=== PATIENT | male | born 1945 | race Caucasian/White ===

== ENCOUNTER 2017-12-14 16:32 | Observation (INO) ==
[2017-12-14 17:14] LABS: Baso # (Auto) 0.1 th/mm3 (0.0-0.2); Baso % (Auto) 1.3 % (0.0-2.0); Eos # (Auto) 0.3 th/mm3 (0.0-0.4); Eos % (Auto) 3.2 % (0.0-4.0); Hematocrit 37.7 % (39.0-51.0); Lymph # (Auto) 1.8 th/mm3 (1.0-4.8); Lymph % (Auto) 17.4 % (9.0-44.0); Mean Corpuscular HGB Conc 34.5 % (32.0-36.0); Mean Platelet Volume 8.6 fL (7.0-11.0); Mono # (Auto) 0.3 th/mm3 (0.0-0.9); Mono % (Auto) 2.7 % (0.0-8.0); Neut # (Auto) 7.9 th/mm3 (1.8-7.7); Neut % (Auto) 75.4 % (16.0-70.0); Platelet Count 218 th/mm3 (150-450); Red Blood Count 4.18 mil/mm3 (4.50-5.90); Red Cell Distribution Width 13.4 % (11.6-17.2); White Blood Count 10.4 th/mm3 (4.0-11.0)
--- NOTE | 2017-12-14 17:20 | XR ---
EXAM DATE: 12/14/2017 5:18 PM EDT AGE/SEX: 72 years / Male INDICATIONS: Chest pain. CLINICAL DATA: This is the patient's initial encounter. Patient reports that signs and symptoms have been present for 1 day and indicates a pain score of 7/10. MEDICAL/SURGICAL HISTORY: None. None. COMPARISON: POI, XR CHEST PA AND LAT, 03/09/2016. . FINDINGS: A single AP view of the chest demonstrates the lungs to be symmetrically aerated without evidence of mass, infiltrate or effusion. The cardiomediastinal contours are unremarkable. Osseous structures a re intact. CONCLUSION: Negative examination. Electronically signed by: Carlos Pyle MD 12/14/2017 5:19 PM EDT
[2017-12-14 17:23] LABS: Chloride 107 meq/L (98-107); Potassium 3.8 meq/L (3.5-5.1); Sodium 138 meq/L (136-145)
[2017-12-14 17:26] LABS: Albumin 3.5 g/dL (3.4-5.0); Anion Gap 9 meq/L (5-15); Calcium 8.4 mg/dL (8.5-10.1); Glucose,Random 101 mg/dL (74-106)
--- NOTE | 2017-12-14 17:26 | ED ---
HPI General Chief Complaint: Chest Pain Stated Complaint: C/P Time Seen by Provider: 12/14/17 16:56 Source: patient Mode of arrival: ambulatory Limitations: no limitations History of Present Illness MD complaint: Reports chest pain STEMI Alert: No Duration: intermittent Onset: during rest Pain location: Reports substernal Severity scale (1-10): 6 Quality: Reports tightness Pain radiation: Reports RUE and LUE Relieving factors: nothing Exacerbating factors: nothing Associated symptoms: Reports other (Lightheadedness) Treatments prior to arrival chest pain: Reports none Related Data Home Medications Medication Instructions Recorded Confirmed Unable to Obtain Home Meds 12/14/17 12/14/17 Allergies Allergy/AdvReac Type Severity Reaction Status Date / Time No Known Allergies Allergy Verified 12/14/17 16:39 Review of Systems ROS: all other systems reviewed are negative [facility] Social History Social History Substance History: No History of Abuse Smoking Status: Former smoker Tobacco Type: Cigarettes How Often Do You Have a Drink Containing Alcohol: Monthly or less Recent Travel in [facility] within the Last 8 Weeks: No Recent Out of Country Travel within the Last 8 Weeks: No Exam Const General: cooperative, healthy appearing and comfortable Orientation: alert, awake and oriented x3 HENMT Head: normal to inspection, normocephalic and atraumatic Eyes General: appearance normal, both eyes and all related structures Conjunctivae: conjunctivae normal Sclera: sclerae normal EOM: EOM intact bilaterally Neck Neck: normal visual inspection and full ROM Chest Chest: normal inspection of the chest Resp Effort & Inspection: normal respiratory effort and able to speak in complete sentences Auscultation: clear to auscultation bilaterally Cardio Rate: regular rate Rhythm: regular rhythm Heart Sounds: S1 normal and S2 normal GI Inspection: normal to inspection Palpation: soft Rectal Exam: visual inspection normal and normal sphincter tone Back/Spine/Pelvis Cervical Spine: cervical ROM normal Thoracic/Lumbar Spine: thoraco-lumbar ROM normal Skin General: no rashes or lesions noted, turgor normal and dry skin Neuro General: alert, awake, oriented x3, moves all extremities and CN's II-XI intact bilaterally Extrem General: normal to inspection, full ROM and no pedal edema Psych Appearance: grossly normal Mental Status: mental status grossly normal Speech and Movement: speech and movement normal Mood: congruent mood Affect: normal affect Attitude: cooperative Thought Process: normal Thought Content: normal Judgment: judgment good Procedures Hemaprompt Stool Procedural Steps Taken: controls appropriately positive and negative Hemaprompt Stool Result: negative Course Consultations Consultation #1: Dr. Mendez will do the admitting orders. Time: 18:19 Consultation #2: Dr. Marino, long term acute care registered nurse, has no further recommendations. He asked that the patient be made n.p.o. after midnight. Time: 18:35 Initial Documented Vital Signs Temperature 98.4 F 12/14/17 16:39 Pulse Rate 82 12/14/17 16:39 Respiratory Rate 16 12/14/17 16:39 Blood Pressure 117/67 12/14/17 16:39 Pulse Oximetry 96 12/14/17 16:39 Last Documented Vital Signs Temperature 98.4 F 12/14/17 16:39 Pulse Rate 67 12/14/17 18:10 Respiratory Rate 16 12/14/17 18:10 Blood Pressure 140/105 H 12/14/17 18:10 Pulse Oximetry 96 12/14/17 18:10 Critical Care Time Critical Care Time: Yes Total Critical Care Time: 45 Attestation: Time to perform other separately billable procedures was not included in the critical care time. My time did not include minutes spent treating any other patients simultaneously or on activities that did not directly contribute to the patient's treatment. The services I provided to this patient were to treat and/or prevent clinically significant deterioration due to CP, NSTEMI I provided critical care services requiring my management, as noted below: Chart data review, documentation time, medication orders and management, vital sign assessments/reviewing monitor data, ordering and reviewing lab tests, ordering and interpreting/reviewing x-rays and diagnostic studies, care of the patient and discussion of the patient with the admitting physicians Medical Decision Making MDM Narrative Medical decision making narrative: This patient presents with chest pain which has awakened him from sleep nightly for the last 3 nights. The pain lasted approximately 15-20 minutes and then subsides. The pain radiates to both upper extremities and is associated with lightheadedness. The patient does exertional work and has worked this week and has had no chest pain with work. His cardiac risk factors include hypertension and hyperlipidemia. He states that he stopped smoking 30 years ago. His EKG is worrisome and that there is some subtle ST segment depression in the lateral leads. His troponin is positive. He was given an aspirin at presentation. Heparin will be started. Nitropaste will be placed. I will consult cardiology. I suspect that they would like for me to transfer him to [facility] for urgent cardiac catheterization tomorrow. Medical Screen Exam Complete: Yes Emergency Medical Condition: Yes Differential Diagnosis Differential Diagnosis: Differential diagnosis of chest pain includes but is not limited to musculoskeletal pain, pulmonary embolism, acute coronary syndrome , pneumonia, pleurisy Lab Data Lab results reviewed: Yes I reviewed the patient's lab results. Result diagrams: 12/14/17 17:08 12/14/17 17:08 Lab Results 12/14/17 12/14/17 12/14/17 Range/Units 17:08 17:08 17:08 CBC w Diff Auto diff final WBC 10.4 (4.0-11.0) th/mm3 RBC 4.18 L (4.50-5.90) mil/mm3 Hgb 13.0 (13.0-17.0) gm/dL Hct 37.7 L (39.0-51.0) % MCV 90.0 (80.0-100.0) fL MCH 31.0 (27.0-34.0) pg MCHC 34.5 (32.0-36.0) % RDW 13.4 (11.6-17.2) % Plt Count 218 (150-450) th/mm3 MPV 8.6 (7.0-11.0) fL Neut % (Auto) 75.4 H (16.0-70.0) % Lymph % (Auto) 17.4 (9.0-44.0) % [place] % (Auto) 2.7 (0.0-8.0) % Eos % (Auto) 3.2 (0.0-4.0) % Baso % (Auto) 1.3 (0.0-2.0) % Neut # (Auto) 7.9 H (1.8-7.7) th/mm3 Lymph # (Auto) 1.8 (1.0-4.8) th/mm3 [place] # (Auto) 0.3 (0.0-0.9) th/mm3 Eos # (Auto) 0.3 (0.0-0.4) th/mm3 Baso # (Auto) 0.1 (0.0-0.2) th/mm3 WBC Differential . Differential Comment . PT 10.2 (9.8-11.6) sec INR 1.0 Ratio APTT 28.2 (23.4-31.7) sec Sodium 138 (136-145) meq/L Potassium 3.8 (3.5-5.1) meq/L Chloride 107 (98-107) meq/L Carbon Dioxide 22.0 (21.0-32.0) meq/L Anion Gap 9 (5-15) meq/L BUN 25 H (7-18) mg/dL Creatinine 1.30 (0.60-1.30) mg/dL Estimated GFR 54 L (>89) mL/min Random Glucose 101 (74-106) mg/dL Calcium 8.4 L (8.5-10.1) mg/dL Total Bilirubin 0.3 (0.2-1.0) mg/dL AST 36 (15-37) U/L ALT 32 (12-78) U/L Alkaline Phosphatase 72 (45-117) U/L Troponin I 1.86 H* (0.02-0.05) ng/mL Total Protein 7.2 (6.4-8.2) g/dL Albumin 3.5 (3.4-5.0) g/dL Imaging Data Attestation: I personally reviewed and interpreted this imaging study as follows : Radiologist's impression: Chest X-Ray 12/14/17 16:57 CONCLUSION: Negative examination. ECG Data EKG Prior to Arrival: No Attestation: I personally reviewed and interpreted this ECG as follows: (EKG shows a sinus rhythm with a 4. He has some very subtle ST depression laterally. He also has right bundle branch block.) Prior ECG tracings: available for review (The subtle ST segment depression laterally was NOT present on his most recent EKG which is available for review.) Discharge Plan Discharge Disposition Patient Disposition: 30 Still Patient Discharge Details Diagnosis: Acute non-ST elevation myocardial infarction (NSTEMI) Physicians Team ED Provider: Amy Zuñiga Primary Care Provider: Octavio Briggs Attending Provider: Mert Mendez Other Providers: Sheldon Marino Status ED Status: Admitted Patient
[2017-12-14 17:27] LABS: Blood Urea Nitrogen 25 mg/dL (7-18)
[2017-12-14 17:29] LABS: Alanine Aminotransferase 32 U/L (12-78); Aspartate Aminotransferase 36 U/L (15-37)
[2017-12-14 17:30] LABS: Glomerular Filtration Rate 54 mL/min (>89)
[2017-12-14 17:31] LABS: Total Protein 7.2 g/dL (6.4-8.2)
[2017-12-14 17:32] LABS: Alkaline Phosphatase 72 U/L (45-117)
[2017-12-14 17:46] LABS: Troponin I 1.86 ng/mL (0.02-0.05)
[2017-12-14] MEDS ORDERED: Heparin 10,000 UNITS/10 ML Vial (for IV use) IV.PUSH STA (17:47)
[2017-12-14] MEDS ORDERED: Heparin Drip 25,000 UNIT/250 ML BAG IV.CONT PRN (17:47)
[2017-12-14 18:13] LABS: Activated Partial Thrombo Time 28.2 sec (23.4-31.7); Prothrombin Time 10.2 sec (9.8-11.6)
[2017-12-14] MEDS ORDERED: Heparin 10,000 UNITS/10 ML Vial (for IV use) IV.PUSH PRN (23:47)
[2017-12-15 00:26] LABS: Troponin I 2.08 ng/mL (0.02-0.05)
--- NOTE | 2017-12-15 03:14 | P.HPIM ---
[facility]: Octavio Briggs DO Chief Complaint: Chest pain History of Present Illness: Mr. 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 He was found to have elevated troponin I of 1.86 and was transferred to [facility] under the hospitalist service for further evaluation and management. Patient is seen in his hospital room. He is currently denying chest pain. He states that his symptoms started on Monday when he woke up in the morning. The pain is substernal and radiates down both of his arms making his hands numb. The pain lasts about 10-15 minutes and then resolves without intervention. He had a similar episode on Monday and Monday upon awakening in the morning. 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 He denies any associated nausea, vomiting, palpitations, shortness of breath, or diaphoresis. He denies any family history of coronary artery disease or heart disease. Other than this, he has been feeling healthy recently and had no fevers, chills, nausea, vomiting, or diarrhea. He did recently have a parathyroidectomy in the past 4-6 months with benign pathology. Calcium is 8.4 on presentation. . Inpatient Certification: I certify that the inpatient services were ordered in accordance with Medicare regulations governing the order. This includes certification that hospital inpatient services are reasonable and necessary and in the case of services not specified as inpatient-only under 42 CFR 419.22(n), that they are appropriately provided as inpatient services in accordance to with the 2-midnight benchmark under 43 CFR 412.3(e) Review of Systems All other systems reviewed negative except as stated in [facility] - History History Provided By: Patient - Medical History Medical History: Medical History (Last Updated 12/15/17 @ 04:33 by RADHA Bird) BPH (benign prostatic hyperplasia) Back pain due to injury Diverticulitis GERD (gastroesophageal reflux disease) History of hyperparathyroidism History of migraine headaches Hyperlipidemia Hypertension Injury of cervical spine Perforated bowel Vesico-intestinal fistula - Surgical History Surgical History: Surgical History (Last Updated 12/15/17 @ 03:10 by RADHA Bird) History of colonoscopy History of colostomy History of colostomy reversal History of parathyroidectomy Onset Date: ~2017 History of partial colectomy - Family History Family History: Family History (Last Updated 12/15/17 @ 03:07 by RADHA Bird) Mother Cancer Uncle Cancer - Social History I have reviewed the patient's Social History: Yes - Tobacco History Second Hand Smoke Exposure: No Tobacco Use In Past 30 Days: No Smoking Status: Former smoker Tobacco Type: Cigarettes Cigarettes Per Day: 4 Years Smoked: 30 Smoking End Date: about 30 years ago - Alcohol History How Often Do You Have a Drink Containing Alcohol: Monthly or less - Substance Use History Substance History: No History of Abuse - Travel History Recent Travel in the [place] Within the Last 8 Weeks: No Recent Travel Out of the Country Within the Last 8 Weeks: No - Immunization History Tetanus Immunization: Unsure Hx Influenza Vaccine This Season: Yes Medications and Allergies Active Medications: Active Medications Acetaminophen (Tylenol) 650 mg PO Q4H PRN PRN Reason: HEADACHE OR TEMP > 101 F Alprazolam (Xanax) 0.5 mg PO Q12H PRN PRN Reason: ANXIETY Amlodipine Besylate (Norvasc) 5 mg PO DAILY [facility] Aspirin (Ecotrin) 325 mg PO DAILY [facility] Carvedilol (Coreg) 3.125 mg PO BID [facility] Last Admin: 12/14/17 21:18 Dose: 3.125 mg Heparin Sodium (Porcine) (Heparin Inj) 2,500 units IV.PUSH UNSCH PRN PRN Reason: aPTT 25-39 Heparin Sodium/Dextrose (Heparin/D5w 25,000 U/250 Ml) 25,000 unit in 250 mls @ 0 mls/hr IV.CONT TITRATE PRN; Protocol PRN Reason: Per Protocol Last Titration: 12/15/17 00:46 Dose: 1,000 units/hr, 10 mls/hr Nitroglycerin (Nitro-Bid 2% Oint) 1 inch TOPICAL Q6HR [facility] Last Admin: 12/14/17 23:47 Dose: 1 inch Nitroglycerin (Nitrostat Sl) 0.4 mg SL Q5M PRN PRN Reason: CHEST PAIN Ondansetron HCl (Zofran Inj) 4 mg IV.PUSH Q6H PRN PRN Reason: NAUSEA OR VOMITING Pantoprazole Sodium (Protonix) 40 mg PO DAILY [facility] Sodium Chloride (Ns Inj) 2 ml IV.FLUSH BID [facility] Last Admin: 12/14/17 21:04 Dose: Not Given Sodium Chloride (Ns Inj) 2 ml IV.FLUSH UNSCH PRN PRN Reason: FLUSH AFTER USING IV ACCESS Tamsulosin HCl (Flomax) 0.4 mg PO DAILY [facility] Tramadol HCl (Ultram) 50 mg PO Q8H PRN PRN Reason: BACK PAIN Venlafaxine HCl (Effexor Xr) 75 mg PO DAILY [facility] Allergies Allergy/AdvReac Type Severity Reaction Status Date / Time No Known Allergies Allergy Verified 12/14/17 16:39 Home Medications Medication Instructions Recorded Confirmed Type amlodipine 5 mg PO DAILY 12/14/17 12/14/17 History omeprazole 40 mg PO DAILY 12/14/17 12/14/17 History tamsulosin 0.4 mg PO DAILY 12/14/17 12/14/17 History venlafaxine 75 mg PO DAILY 12/14/17 12/14/17 History Exam Vital signs: Vital Signs 12/14/17 16:39 12/14/17 16:40 12/14/17 16:57 Temperature 98.4 F Pulse Rate 82 87 75 Respiratory Rate 16 17 Blood Pressure 117/67 140/79 Pulse Oximetry 96 97 95 12/14/17 17:43 12/14/17 18:10 12/14/17 18:17 Temperature Pulse Rate 72 67 69 Respiratory Rate 16 16 Blood Pressure 115/74 140/105 H Pulse Oximetry 95 96 12/14/17 18:25 12/14/17 20:57 12/14/17 23:25 Temperature Pulse Rate 69 72 66 Respiratory Rate 16 18 18 Blood Pressure 129/70 116/72 117/72 Pulse Oximetry 99 97 97 12/15/17 00:44 12/15/17 01:32 12/15/17 02:00 Temperature 97.4 F L Pulse Rate 74 59 L 61 Respiratory Rate 18 16 Blood Pressure 121/85 Pulse Oximetry 97 99 Intake & Output 12/14/17 12/14/17 12/15/17 06:59 18:59 06:59 Weight 83 kg Narrative: GENERAL: This is a well-nourished, well-developed patient, in no apparent distress. SKIN: No rashes, ecchymoses or lesions. Cool and dry. HEAD: Atraumatic. Normocephalic. EYES: No scleral icterus. No injection or drainage. ENT: Nose without bleeding, purulent drainage. NECK: Trachea midline. No JVD. CARDIOVASCULAR: Regular rate and rhythm without murmurs, gallops, or rubs. RESPIRATORY: Clear to auscultation. Breath sounds equal bilaterally. No wheezes , rales, or rhonchi. GASTROINTESTINAL: Abdomen soft, non-tender, nondistended. No guarding. MUSCULOSKELETAL: Extremities without clubbing, cyanosis, or edema. No calf tenderness. NEUROLOGICAL: Awake and alert. Motor and sensory grossly within normal limits. Normal speech. PSYCHIATRIC: Appears situationally anxious but is very pleasant and cooperative. . Results - Labs CBC & Chem 7: 12/14/17 17:08 12/14/17 17:08 Labs: Short CBC 12/14/17 Range/Units 17:08 WBC 10.4 (4.0-11.0) th/mm3 Hgb 13.0 (13.0-17.0) gm/dL Hct 37.7 L (39.0-51.0) % Plt Count 218 (150-450) th/mm3 BMP 12/14/17 17:08 Sodium 138 Potassium 3.8 Chloride 107 Carbon Dioxide 22.0 BUN 25 H Creatinine 1.30 Calcium 8.4 L Cardiac Enzymes 12/14/17 12/14/17 12/14/17 Range/Units 17:08 20:00 23:25 Total Creatine Kinase 162 (39-308) U/L Troponin I 1.86 H* 1.98 H* 2.08 H* (0.02-0.05) ng/mL Liver Function 12/14/17 Range/Units 17:08 Total Bilirubin 0.3 (0.2-1.0) mg/dL AST 36 (15-37) U/L ALT 32 (12-78) U/L Alkaline Phosphatase 72 (45-117) U/L Albumin 3.5 (3.4-5.0) g/dL - Imaging Impressions Chest X-Ray 12/14/17 16:57 CONCLUSION: Negative examination. Caprini VTE Risk Assessment Caprini VTE Risk Assessment: Moderate/High Risk (score >= 2) Caprini Risk Assessment Model: Point Value = 1 Point Value = 2 Point Value = 3 Point Value = 5 Age 41-60 Minor surgery BMI > 25 kg/m2 Swollen legs Varicose veins or History of unexplained or recurrent spontaneous Oral contraceptives or hormone replacement Sepsis (< 1 month) Serious lung disease, including pneumonia (< 1 month) Abnormal pulmonary function Acute myocardial infarction Congestive heart failure (< 1 month) History of inflammatory bowel disease Medical patient at bed rest Age 61-74 Arthroscopic surgery Major open surgery (> 45 min) Laparoscopic surgery (> 45 min) Malignancy Confined to bed (> 72 hours) Immobilizing plaster cast Central venous access Age >= 75 History of VTE Family history of VTE Factor V Leiden Prothrombin [id number] Lupus anticoagulant Anticardiolipin antibodies Elevated serum homocysteine Heparin-induced thrombocytopenia Other congenital or acquired thrombophilia Stroke (< 1 month) Elective arthroplasty Hip, pelvis, or leg fracture Acute spinal cord injury (< 1 month) Prophylaxis Regimen: Total Risk Factor Score Risk Level Prophylaxis Regimen 0-1 Low Early ambulation 2 Moderate Order ONE of the following: *Sequential Compression Device (SCD) *Heparin 5000 units SQ BID 3-4 Higher Order ONE of the following medications: *Heparin 5000 units SQ TID *Enoxaparin/Lovenox 40 mg SQ daily (WT < 150 kg, CrCl > 30 mL/min) *Enoxaparin/Lovenox 30 mg SQ daily (WT < 150 kg, CrCl > 10-29 mL/min) *Enoxaparin/Lovenox 30 mg SQ BID (WT < 150 kg, CrCl > 30 mL/min) AND/OR *Sequential Compression Device (SCD) 5 or more Highest Order ONE of the following medications: *Heparin 5000 units SQ TID (Preferred with Epidurals) *Enoxaparin/Lovenox 40 mg SQ daily (WT < 150 kg, CrCl > 30 mL/min) *Enoxaparin/Lovenox 30 mg SQ daily (WT < 150 kg, CrCl > 10-29 mL/min) *Enoxaparin/Lovenox 30 mg SQ BID (WT < 150 kg, CrCl > 30 mL/min) AND *Sequential Compression Device (SCD) Assessment and Plan - Plan Mr. 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 He was found to have elevated troponin I of 1.86 and was transferred to [facility] under the hospitalist service for further evaluation and management. NSTEMI -Troponin I first-1.86, second-1.98, and third-2.08; EKGs initially showed some ST depression in precordial leads as well as lateral leads with subsequent ST depression in lateral leads for the second EKG - incomplete RBBB on both; 3rd EKG is pending -Chest x-ray-image personally reviewed by me and is negative for acute findings -continue Heparin drip -Continue nitroglycerin paste 1 inch every 6 hours -Consult cardiology -appreciate assistance -Continuous cardiac telemetry to monitor for arrhythmia -N.p.o. for cardiac cath in morning -Start beta-cayetano -carvedilol 3.125 mg p.o. twice daily and enteric-coated aspirin 325 mg p.o. daily Mild Renal Insufficiency -no prior labs available for comparison; no history per patient -BUN 25, Creatinine 1.30, and eGFR 54 -recheck labs in a.m. and follow results -avoid nephrotoxins Chronic back pain -Takes tramadol extremely sparingly at home -will order -last prescription was written in 2016 Verified on [employer]- Tramadol 50 mg q8h p.o. 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 with last prescription written in 2017 -Xanax 0.5 mg p.o. every 12 hours as needed for anxiety Hyperlipidemia -stopped taking medications because he'd heard it might cause memory problems -will check lipid profile in a.m. and follow results GERD -Protonix 40 mg p.o. daily (takes omeprazole at home) Hypertension -continue home amlodipine -monitor trends in bp readings and adjust treatments as indicated BPH - continue home Flomax DVT prophylaxis -Currently on a heparin drip Discussed Condition With: Patient, RN, and Dr. Chang . H&P: Quality - VTE Deep Vein Thrombosis/Pulmonary Embolism Present on Admission: No
[2017-12-15 07:13] LABS: Hematocrit 35.2 % (39.0-51.0); Mean Corpuscular HGB Conc 34.3 % (32.0-36.0); Mean Corpuscular Volume 90.4 fL (80.0-100.0); Mean Platelet Volume 8.8 fL (7.0-11.0); Platelet Count 167 th/mm3 (150-450); Red Blood Count 3.89 mil/mm3 (4.50-5.90); Red Cell Distribution Width 14.5 % (11.6-17.2); White Blood Count 7.7 th/mm3 (4.0-11.0)
[2017-12-15 07:19] LABS: Calcium 7.9 mg/dL (8.5-10.1); Carbon Dioxide 26.3 meq/L (21.0-32.0); Potassium 3.7 meq/L (3.5-5.1)
[2017-12-15 07:23] LABS: Chol/HDL Ratio 5.71 Ratio; HDL Cholesterol 41.3 mg/dL (40.0-60.0)
--- NOTE | 2017-12-15 07:40 | P.CONCA ---
History of Present Illness Primary Care Provider: Octavio Briggs DO Chief Complaint: Chest pain History of Present Illness: 72-year-old male with past medical history of HTN, HLD who presented with chest pain. The patient states that Monday, Monday, and Monday nights he was woken up in the middle the night with chest heaviness that lasted about 5 minutes, but he was able to go back to sleep. He states that yesterday morning , while driving a motorized cart he developed the symptoms as well lasting about 10 minutes and went to the ED for evaluation. His initial EKG showed anterior ST depressions with lateral T wave inversions. Troponin 1.86-2.08. Placed on heparin gtt. quit smoking over 30 years ago. Patient's father with history of coronary stents. Review of Systems All other systems reviewed negative except as stated in HPI PMFSH - History History Provided By: Patient, Medical Record - Medical History Medical History: Medical History (Last Updated 12/15/17 @ 04:33 by RADHA Bird) BPH (benign prostatic hyperplasia) Back pain due to injury Diverticulitis GERD (gastroesophageal reflux disease) History of hyperparathyroidism History of migraine headaches Hyperlipidemia Hypertension Injury of cervical spine Perforated bowel Vesico-intestinal fistula - Surgical History Surgical History: Surgical History (Last Updated 12/15/17 @ 03:10 by RADHA Bird) History of colonoscopy History of colostomy History of colostomy reversal History of parathyroidectomy Onset Date: ~2017 History of partial colectomy - Family History Family History: Family History (Last Updated 12/15/17 @ 03:07 by RADHA Bird) Mother Cancer Uncle Cancer - Tobacco History Second Hand Smoke Exposure: No Tobacco Use In Past 30 Days: No Smoking Status: Former smoker Tobacco Type: Cigarettes Cigarettes Per Day: 4 Years Smoked: 30 Smoking End Date: about 30 years ago - Alcohol History How Often Do You Have a Drink Containing Alcohol: Monthly or less - Substance Use History Substance History: No History of Abuse - Travel History Recent Travel in the [place] Within the Last 8 Weeks: No Recent Travel Out of the Country Within the Last 8 Weeks: No - Immunization History Tetanus Immunization: Unsure Hx Influenza Vaccine This Season: Yes Medications and Allergies Allergies Allergy/AdvReac Type Severity Reaction Status Date / Time No Known Allergies Allergy Verified 12/14/17 16:39 Home Medications Medication Instructions Recorded Confirmed Type amlodipine 5 mg PO DAILY 12/14/17 12/14/17 History omeprazole 40 mg PO DAILY 12/14/17 12/14/17 History tamsulosin 0.4 mg PO DAILY 12/14/17 12/14/17 History venlafaxine 75 mg PO DAILY 12/14/17 12/14/17 History Active Medications: Active Medications Acetaminophen (Tylenol) 650 mg PO Q4H PRN PRN Reason: HEADACHE OR TEMP > 101 F Alprazolam (Xanax) 0.5 mg PO Q12H PRN PRN Reason: ANXIETY Amlodipine Besylate (Norvasc) 5 mg PO DAILY [facility] Aspirin (Ecotrin) 325 mg PO DAILY [facility] Carvedilol (Coreg) 3.125 mg PO BID [facility] Last Admin: 12/14/17 21:18 Dose: 3.125 mg Heparin Sodium (Porcine) (Heparin Inj) 2,500 units IV.PUSH UNSCH PRN PRN Reason: aPTT 25-39 Heparin Sodium/Dextrose (Heparin/D5w 25,000 U/250 Ml) 25,000 unit in 250 mls @ 0 mls/hr IV.CONT TITRATE PRN; Protocol PRN Reason: Per Protocol Last Titration: 12/15/17 00:46 Dose: 1,000 units/hr, 10 mls/hr Nitroglycerin (Nitro-Bid 2% Oint) 1 inch TOPICAL Q6HR [facility] Last Admin: 12/15/17 06:27 Dose: 1 inch Nitroglycerin (Nitrostat Sl) 0.4 mg SL Q5M PRN PRN Reason: CHEST PAIN Ondansetron HCl (Zofran Inj) 4 mg IV.PUSH Q6H PRN PRN Reason: NAUSEA OR VOMITING Pantoprazole Sodium (Protonix) 40 mg PO DAILY [facility] Sodium Chloride (Ns Inj) 2 ml IV.FLUSH BID [facility] Last Admin: 12/14/17 21:04 Dose: Not Given Sodium Chloride (Ns Inj) 2 ml IV.FLUSH UNSCH PRN PRN Reason: FLUSH AFTER USING IV ACCESS Tamsulosin HCl (Flomax) 0.4 mg PO DAILY [facility] Tramadol HCl (Ultram) 50 mg PO Q8H PRN PRN Reason: BACK PAIN Venlafaxine HCl (Effexor Xr) 75 mg PO DAILY [facility] Exam Vital signs: Vital Signs 12/14/17 16:39 12/14/17 16:40 12/14/17 16:57 Temperature 98.4 F Pulse Rate 82 87 75 Respiratory Rate 16 17 Blood Pressure 117/67 140/79 Pulse Oximetry 96 97 95 12/14/17 17:43 12/14/17 18:10 12/14/17 18:17 Temperature Pulse Rate 72 67 69 Respiratory Rate 16 16 Blood Pressure 115/74 140/105 H Pulse Oximetry 95 96 12/14/17 18:25 12/14/17 20:57 12/14/17 23:25 Temperature Pulse Rate 69 72 66 Respiratory Rate 16 18 18 Blood Pressure 129/70 116/72 117/72 Pulse Oximetry 99 97 97 12/15/17 00:44 12/15/17 01:32 12/15/17 02:00 Temperature 97.4 F L Pulse Rate 74 59 L 61 Respiratory Rate 18 16 Blood Pressure 121/85 Pulse Oximetry 97 99 12/15/17 03:00 12/15/17 04:00 12/15/17 05:00 Temperature 98.0 F Pulse Rate 60 59 L 58 L Respiratory Rate 14 Blood Pressure 104/53 L Pulse Oximetry 98 12/15/17 06:00 Temperature Pulse Rate 66 Respiratory Rate Blood Pressure Pulse Oximetry Intake & Output 12/14/17 12/15/17 12/15/17 18:59 06:59 18:59 Intake Total 0 / 0 Balance 0 / 0 Weight 182 lb 15.739 oz 182 lb 12.211 oz Intake: Oral 0 / 0 Other: # Voids 2 Narrative: GENERAL: Well-developed well-nourished. In no acute distress. NECK: No carotid bruits. No JVD. CARDIOVASCULAR: Regular rate and rhythm. No murmur appreciated. RESPIRATORY: No accessory muscle use. Clear to auscultation. Breath sounds equal bilaterally. MUSCULOSKELETAL: No clubbing or cyanosis. No edema. NEUROLOGICAL: Awake and alert. Normal speech. Results 12/15/17 05:16 12/15/17 05:16 Cardiac Enzymes 12/14/17 12/14/17 12/14/17 Range/Units 17:08 20:00 23:25 AST 36 (15-37) U/L Troponin I 1.86 H* 1.98 H* 2.08 H* (0.02-0.05) ng/mL Coagulation 12/14/17 12/14/17 12/15/17 Range/Units 17:08 23:25 05:16 PT 10.2 (9.8-11.6) sec APTT 28.2 67.1 H D 58.2 H (23.4-31.7) sec Lipids 12/15/17 Range/Units 05:16 Triglycerides 104 (42-150) mg/dL Cholesterol 236 H (120-200) mg/dL HDL Cholesterol 41.3 (40.0-60.0) mg/dL Cholesterol/HDL Ratio 5.71 Ratio CBC 12/14/17 12/15/17 Range/Units 17:08 05:16 WBC 10.4 7.7 (4.0-11.0) th/mm3 RBC 4.18 L 3.89 L (4.50-5.90) mil/mm3 Hgb 13.0 12.0 L (13.0-17.0) gm/dL Hct 37.7 L 35.2 L (39.0-51.0) % Plt Count 218 167 (150-450) th/mm3 Neut # (Auto) 7.9 H (1.8-7.7) th/mm3 Lymph # (Auto) 1.8 (1.0-4.8) th/mm3 [place] # (Auto) 0.3 (0.0-0.9) th/mm3 Eos # (Auto) 0.3 (0.0-0.4) th/mm3 Baso # (Auto) 0.1 (0.0-0.2) th/mm3 Comprehensive Metabolic Panel 12/14/17 12/15/17 Range/Units 17:08 05:16 Sodium 138 141 (136-145) meq/L Potassium 3.8 3.7 (3.5-5.1) meq/L Chloride 107 108 H (98-107) meq/L Carbon Dioxide 22.0 26.3 (21.0-32.0) meq/L BUN 25 H 23 H (7-18) mg/dL Creatinine 1.30 1.15 (0.60-1.30) mg/dL Calcium 8.4 L 7.9 L (8.5-10.1) mg/dL AST 36 (15-37) U/L ALT 32 (12-78) U/L Alkaline Phosphatase 72 (45-117) U/L Total Protein 7.2 (6.4-8.2) g/dL Albumin 3.5 (3.4-5.0) g/dL Intake and Output 12/14/17 12/15/17 12/15/17 22:59 06:59 14:59 Intake Total 0 / 0 Balance 0 / 0 Intake: Oral 0 / 0 Other: # Voids 2 Weight 182 lb 15.739 oz 182 lb 12.211 oz - Imaging and Cardiology Imaging: Impressions Chest X-Ray 12/14/17 16:57 CONCLUSION: Negative examination. Assessment and Plan - Plan 72-year-old male with a past medical history of HTN, HLD who presented with chest pain, EKG changes, troponin elevation. NSTEMI: N.p.o. after light breakfast for [facility] this afternoon. Continue heparin gtt. Discussed Condition With: Patient, Dr. Robbins - Attending Attestation [facility] PCI RCA and LCx DC tomorrow
[2017-12-15] MEDS: Venlafaxine XR 75 MG Capsule PO SCH (08:38)
[2017-12-15] MEDS: ALPRAZolam 0.5 MG Tablet PO PRN ×2 (08:38→22:41)
[2017-12-15] MEDS: Acetaminophen 325 MG Tablet PO PRN ×2 (08:39→14:25)
[2017-12-15] MEDS ORDERED: amLODIPine 5 MG Tablet PO SCH (09:00)
[2017-12-15] MEDS ORDERED: Heparin 10,000 UNITS/10 ML Vial (for IV use) ONE (12:36)
[2017-12-15] MEDS ORDERED: Heparin/NS PF Inj 1,500 ML ONE (12:36)
[2017-12-15] MEDS ORDERED: fentaNYL Citrate Inj 100 MCG/2 ML Ampul ONE (12:36)
[2017-12-15] MEDS ORDERED: Nitroglycerin SL 400 MCG/ACT 4.9 GM Spray Bottle SL ONE (12:39)
[2017-12-15] MEDS ORDERED: Lidocaine PF 1% Inj 30 ML Vial ONE (12:45)
[2017-12-15] MEDS ORDERED: Sodium Chlor 0.9% Inj 250 ML IV.SIG ONE (13:51)
[2017-12-15] MEDS ORDERED: Misc Info for Pharmacy OTHER STA (13:51)
[2017-12-15] MEDS ORDERED: Atropine Inj 1 MG/ML Vial IV.PUSH PRN (13:51)
--- NOTE | 2017-12-15 13:58 | CATHPROC ---
StepOut HIS Report Study Information Study Number Admission Scheduled Start Study Start [id number] Dec 14 2017 6:25PM 12/15/2017 Dec 15 2017 12:31PM [place] [facility] Cardiac Catheterization Admit Source Facility Department Other [facility] - Claim Clerk Physician and Clinical Staff Initial Carlos Liu Plasma ProcessorEsteban Slater,RN Plasma Processor Mary Grace Flores,MINE Recorder John Gao,RT(R) Scrub Ismael Sanabria,RT(R) Procedures Performed Procedure Location (Site) Vessel Name Coronary Angiograms LCA Left Coronary Coronary Angiograms RCA Right Coronary Drug Eluting Inflatio CIRC Mid CIRC Drug Eluting Inflatio RCA Dist Right Coronary Drug Eluting Inflatio RCA Prox Right Coronary L Heart Cath PTCA CIRC Mid CIRC PTCA RCA Dist Right Coronary PTCA RCA Mid Right Coronary PTCA RCA Prox Right Coronary Wire insertion CIRC Mid CIRC Wire insertion Radial (right) Radial Art. Equipment Time Service Station Attendant Description Size Mfg Part Number Used/Scraped TRANSDUCER, TRUWAVE [id number] 12:43 CRAFT GALEANA * Used W/MAGNUS *[id number] [phone] *[id number] *[id number] [phone] *[id number] *[id number] 12:43 [employer] BLANKET,WARM AIR CCL * Used *[id number] 12:43 [employer] PACK, CCL CUSTOM * Used *[id number] 12:43 [employer] SUPPORT, ARTERIAL ADULT [id number] *[id number] Used 13:38 [employer] STENT, 2.25 26MM VLADISLAV 2.25 26MM [id number] Used [id number] 13:41 [employer] STENT, 2.5 12MM VLADISLAV 2.5 12MM Used *[id number] 13:24 [employer] STENT, 2.5 38MM VLADISLAV 2.5 38MM [id number] Used [id number] 13:22 [employer] 30 ROMEO INDEFLATOR Used *[id number] BAND, RADIAL COMPRESSION TR [id number] 13:46 [employer] MEDICAL 24CM Used SHORT 24 *[id number] SHEATH, FR6 RADIAL PRELUDE 12:43 [employer] FR 6 [id number] Used EASE 11CM [id number] 12:43 [employer] WIRE, EXCHANGE 260CM 3MMJ 260CM Used *[id number] 12:43 [employer]AM[employer] MANIFOLD, 4 PORT * Used *[id number] 12:43 [employer] OMNIPAQUE, 350 MG, 150ML 150ML [id number] Used WIRE, RUNTHROUGH NS FLOPPY 13:12 [employer] MEDICAL 180CM Used .014 180CM *[id number] Equipment Model, Serial, Lot Number and Expiration Data Description Model Number Serial Number Lot Number Expiration Date STENT, 2.25 26MM VLADISLAV [id number] 04-06-2019 STENT, 2.5 12MM VLADISLAV [id number] 04-10-2019 STENT, 2.5 38MM VLADISLAV [id number] 05-18-2019 History: Current Medications Medication Dosage/Unit Route Frequency Last Date/Time Taken NTG Patch HEPARIN History: Allergies Allergy Reaction No Known Allergies History: Risk Factors Family History of Hypertension Dyslipidemia Previous MT Previous Heart Failure Premature CAD Yes Yes Yes No No Prior Valve Prior PCI Prior CABG Surgery No No No Cerebrovascular Peripheral Artery Chronic Lung On Dialysis Diabetes Disease Disease Disease No Yes No No No History: Symptoms/Diagnosis Selection Items Chest pain History: Stress Tests Stress or Imaging Studies Performed No History: Other Disease Selection Items HTN History: Other Current Smoker Method Quit Packs a Day Years Used Pack Years Yes Cigarettes 30 Years Ago 1 15 15 Labs Hgb (g/dl) Hct (%) RBC (MIL/MM3) WBC (l/cumm) Platelets (thousands) 11.60-17.00 35.00-51.00 4.00-5.90 4.00-11.00 150.00-450.00 12.0 25.2 3.8 7.7 167 Glucose (mg/dl) BUN (mg/dl) Creatinine (mg/dl) BUN:Creatinine (1:x) 74.00-106.00 7.00-18.00 0.50-1.30 10.00-20.00 87 23 1.0 23 Na (meq/l) K (meq/l) Cl (meq/l) CO2 (mmol/L) Ca (mg/dl) 136.00-145.00 3.50-5.10 98.00-107.00 21.00-32.00 8.50-10.10 141 3.7 108 26.3 7.9 PT (sec) PTT (sec) INR (PTT:PT) 9.80-11.60 24.30-30.10 0.90-1.10 10.2 58.2 1 Troponin I (ng/ml) CPK-MB (ng/ML) 0.02-0.05 0.50-3.60 2.08 Not Drawn Medication Medication Total Dose (Bolus/Oral) Medication Total Dosage/Unit 1% XYLOCAINE 5 mL ANGIOMAX BOLUS 13 mL BRILLINTA 180 mg FENTANYL 50 mcg HEPARIN 3000 units NITROGLYCERIN S/L 0.4 mg NTG (IC) 300 mcg OXYGEN 2 l/min VERSED 2 mg Medications (Bolus/Oral) Medication Time Given Dosage/Unit Administered By Reason NITROGLYCERIN S/L 12/15/2017 12:58:51 PM 0.4 mg Mary Grace Flores Patient arrived on 0.4 mg NITROGLYCERIN S/L given by Mary Grace Flores RN via Sublingual. VERSED 12/15/2017 1:03:17 PM 2 mg Mary Grace Flores 2 mg VERSED given in lab by Mary Grace Flores RN in Left Antecubital via Peripheral IV. FENTANYL 12/15/2017 1:03:25 PM 50 mcg Mary Grace Flores 50 mcg FENTANYL given in lab by Mary Grace Flores RN in Left Antecubital via Peripheral IV. 1% XYLOCAINE 12/15/2017 1:03:33 PM 5 mL Carlos Robbins 5 mL 1% XYLOCAINE given in lab by Carlos Robbins in Right Radial via Subcutaneous. NTG (IC) 12/15/2017 1:04:43 PM 200 mcg John Gao 200 mcg NTG (IC) given in lab by John Gao, RT(R) in Right Radial via Intra-arterial. OXYGEN 12/15/2017 1:07:02 PM 2 l/min Mary Grace Flores 2 l/min OXYGEN given in lab by Mary Grace Flores RN via Nasal. HEPARIN 12/15/2017 1:07:42 PM 3000 units Mary Grace Flores 3000 units HEPARIN given in lab by Mary Grace Flores RN via Peripheral IV. ANGIOMAX BOLUS 12/15/2017 1:14:07 PM 13 mL Mary Grace Flores 13 mL ANGIOMAX BOLUS given in lab by Mary Grace Flores RN in Left Antecubital via Peripheral IV. NTG (IC) 12/15/2017 1:40:05 PM 100 mcg Carlos Robbins 100 mcg NTG (IC) given in lab by Carlos Robbins via Intra-coronary. BRILLINTA 12/15/2017 1:52:55 PM 180 mg Mary Grace Flores 180 mg BRILLINTA given in lab by Mary Grace Flores, RN in Per mouth via Oral. Medication (Drip) Medication Time Given Dosage/Unit Concentration/Unit Diluent (ml) Solution ANGIOMAX DRIP 12/15/2017 1:17:18 PM 1.511 mg/kg/hr 250 mg 50 NaCl .9 1.511 mg/kg/hr ANGIOMAX DRIP given in lab by Mary Grace Flores RN in Left Antecubital via Peripheral I V. Pump/Drip Flow = 25 ml/hr using NaCl .9 with a concentration of 250 mg in 50 ml. HEPARIN DRIP 12/15/2017 12:38:17 PM 100 units/hr 65198 units 250 D5W Patient arrived on 100 units/hr HEPARIN DRIP in Left Antecubital via Peripheral IV. Pump/Drip Flow = 1 ml/hr [place] [address] units in 250 ml. IV Solutions 12/15/2017 12:37:05 PM 0 mL (IV) 500 NaCl .9 IV Solutions given in lab by Esteban Quinones RN in Left Antecubital via Peripheral IV. Pump/Drip Flow = 20 ml/hr using NaCl .9. Initial Case Assessment Cardiovascular HR Rhythm NIBP Chest Pain 64 Sinus 154/90 6 Edema Present Skin color Skin None Normal Warm Dry Circulatory - Right Pulses Dorsalis Pedis Femoral Radial 2 2 2 Scale (0,1,2,3,4,d) Circulatory - Left Pulses Dorsalis Pedis Femoral Radial 2 Scale (0,1,2,3,4,d) Neurological State Oriented to time-place- Alert Moves all extremities person Respiration - General Respiration Rate SpO2 (%) O2 (lpm) (B/min) 8 98 2 Final Case Assessment Cardiovascular HR Rhythm NIBP Chest Pain 58 Sinus 112/61 0 Edema Present Skin color Skin None Normal Warm Dry Circulatory - Right Pulses Dorsalis Pedis Femoral Radial 2 2 2 Scale (0,1,2,3,4,d) Circulatory - Left Pulses Dorsalis Pedis Femoral Radial 2 Scale (0,1,2,3,4,d) Neurological State Oriented to time-place- Alert Moves all extremities person Respiration - General Respiration Rate SpO2 (%) O2 (lpm) (B/min) 11 99 2 Chronological Log Time Study Chronological Log 12:33:27 Patient arrived via Bed. 12:36:34 Patient Name, D.O.B, / Armband Verified By R.N. 12:36:35 Consent signed by the physician and the patient and verified by the Claim Clerk staff. 12:36:36 Pre-op and post- op instructions given; patient acknowledges understanding of instructions. 12:36:36 Verbal Stimulation=2 Physical Stimulation=2 Airway=2 Respiration=2 TOTAL=8. (0=absent, 1=li mited, 2=present) 12:36:37 Presedation assessment performed by Claim Clerk RN. 12:36:40 Allens test performed on the right radial and ulnar artery. 12:36:57 Patient has been NPO for Less than 6Hrs. 12:36:58 Skin Breakdown- none per patient. 12:36:58 Patient Warmer Placed on the Table. 12:36:59 Disposable Defibrillator Pads Placed On Patient. 12:37:02 Jordon Prominences Protected 12:37:02 A # 20 IV was noted in the Antecubital (left). Grade = 0 IV Solutions given in lab by Esteban Quinones RN in Left Antecubital via Peripheral IV. Pump/Drip Flow = 20 ml/hr using 12:37:05 NaCl .9. Patient arrived on 100 units/hr HEPARIN DRIP in Left Antecubital via Peripheral IV. Pump/Drip F low = 1 ml/hr using 12:38:17 [place] [address] units in 250 ml. 12:38:55 History and physical on the chart or being dictated. Assessment: Initial Case, HR=64 BPM, Rhythm=Sinus, VOCM=551/90 mmhg, Chest Pain=6, Edema=None, Color=Normal, Skin = Warm, Dry Right Pulses: Boyd Ped=2, Femoral=2, Radial=2 12:38:56 Left Pulses: Femoral=2 Neurological: State=Alert, Ox3, RIGGS Respiration: Resp=8 B/min, SpO2=98 %, O2=2 lpm Vitals capture started with the following parameters, Patient=Adult, Interval=5 min, Initial Pr fxanqw=986 mmHg, 12:39:01 Deflation Rate=5 mmHg, Cuff placed on Left Arm 12:39:35 Vitals capture stopped. Vitals capture started with the following parameters, Patient=Adult, Interval=5 min, Initial Pr onkxms=449 mmHg, 12:41:40 Deflation Rate=5 mmHg, Cuff placed on Left Arm 12:42:02 Reference ECG taken 12:42:53 HR=72 bpm, RFSY=492/90 mmhg, SpO2=97.0 %, Resp=24 B/min, Pain=6, Boris=10, Miller=2 12:45:02 Right Radial and groin(s) prepped with 2% chlorhexidine, and draped after a 3 min. waiting time. 12:47:17 HR=69 bpm, KWTE=784/79 mmhg, SpO2=96.0 %, Resp=12 B/min, Pain=6, Boris=10, Miller=2 12:48:25 MD paged 12:49:24 MD responded 12:52:40 Pressure channel 1 zeroed. 12:53:01 HR=62 bpm, JZVQ=247/84 mmhg, SpO2=97.0 %, Resp=29 B/min, Pain=6, Boris=10, Miller=2 12:57:21 HR=64 bpm, XTQG=319/98 mmhg, SpO2=96.0 %, Resp=11 B/min, Pain=6, Boris=10, Miller=2 12:58:49 MD arrived. 12:58:51 Patient arrived on 0.4 mg NITROGLYCERIN S/L given by Mary Grace Flores, MINE via Sublingual. Time Out. Correct patient, correct procedure, correct physician, labs, allergies, and equipment verified with slabber light 13:02:21 team present. Fire risk assesment completed (see hard stop sheet for coding). Time Out Conc urred by and individual staff in procedure. 13:02:27 HR=68 bpm, NZDT=550/87 mmhg, SpO2=97.0 %, Resp=9 B/min, Pain=6, Boris=10, Miller=2 13:03:17 2 mg VERSED given in lab by Mary Grace Flores, RN in Left Antecubital via Peripheral IV. 13:03:25 50 mcg FENTANYL given in lab by Mary Grace Flores RN in Left Antecubital via Peripheral IV. 13:03:33 5 mL 1% XYLOCAINE given in lab by Carlos Robbins in Right Radial via Subcutaneous. 13:03:34 Case Start 13:04:17 Access site was Right Radial Artery . A SHEATH, FR6 RADIAL PRELUDE EASE 11CM FR 6 was advanced into the Radial (right) using the Perc utaneous 13:04:23 technique. 13:04:43 200 mcg NTG (IC) given in lab by John Gao RT(R) in Right Radial via Intra-arterial. A JR 5.0 INFINITI CATHETER FR 5 was advanced over a wire. OMNIPAQUE, 350 MG, 150ML 150ML was us ed for 13:05:20 injections. Recorded Pressure: LV, HR=70, Condition=Condition 1 13:06:49 (Left Ventricle) LV 129/10/17 Recorded Pressure: LV, Ao, HR=71, Condition=Condition 1 13:06:55 (Left Ventricle) LV 131/11/21, (Aorta) Ao 132/70/98 13:07:02 2 l/min OXYGEN given in lab by Mary Grace Flores, MINE via Nasal. 13:07:28 HR=67 bpm, WFKQ=618/68 mmhg, SpO2=84.0 %, Resp=15 B/min, Pain=6, Boris=10, Miller=2 Recorded Pressure: Ao, HR=69, Condition=Condition 1 13:07:35 (Aorta) Ao 135/75/100 13:07:42 3000 units HEPARIN given in lab by Mary Grace Flores RN via Peripheral IV. 13:08:29 The RCA was injected and visualized at various angles. OMNIPAQUE, 350 MG, 150ML 150ML used . After removing the current catheter a JL 3.5 INFINITI CATHETER FR 5 was advanced over a WIRE, E XCHANGE 260CM 13:08:36 3MMJ 260CM. 13:09:44 The LCA was injected and visualized at various angles. OMNIPAQUE, 350 MG, 150ML 150ML used . 13:11:42 Catheter was removed 13:12:25 HR=64 bpm, WYAY=541/70 mmhg, SpO2=92.0 %, Resp=16 B/min, Pain=6, Boris=10, Miller=2 13:12:57 A AL 2 GUIDE CATHETER FR 6 was advanced over a wire. OMNIPAQUE, 350 MG, 150ML 150ML was use d for injections. 13:14:07 13 mL ANGIOMAX BOLUS given in lab by Mary Grace Flores, RN in Left Antecubital via Peripheral IV. 13:14:30 A WIRE, RUNTHROUGH NS FLOPPY .014 180CM 180CM was inserted via Radial (right). 1.511 mg/kg/hr ANGIOMAX DRIP given in lab by Mary Grace Flores, RN in Left Antecubital via Periph eral IV. Pump/Drip 13:17:18 Flow = 25 ml/hr using NaCl .9 with a concentration of 250 mg in 50 ml. 13:17:28 HR=65 bpm, EOPS=082/59 mmhg, SpO2=94.0 %, Resp=16 B/min, Pain=6, Boris=10, Miller=2 13:19:01 Interventional wire has crossed the lesion A balloons was inserted over WIRE, RUNTHROUGH NS FLOPPY .014 180CM 180CM via the CIRC Mid. Saph joan 13:20:43 balloon2.5*20 A balloons over a WIRE, RUNTHROUGH NS FLOPPY .014 180CM 180CM in the CIRC Mid was inflated usin g a 30 ROMEO 13:21:37 INDEFLATOR at 10 romeo for 10 sec. A balloons over a WIRE, RUNTHROUGH NS FLOPPY .014 180CM 180CM in the CIRC Mid was inflated usin g a 30 ROMEO 13:21:59 INDEFLATOR at 10 romeo for 10 sec. Saphire balloon2.5*20 13:22:15 Balloon Removed. 13:22:23 HR=64 bpm, YRQD=481/67 mmhg, SpO2=95.0 %, Resp=17 B/min, Pain=6, Boris=10, Miller=2 A balloons was inserted over WIRE, RUNTHROUGH NS FLOPPY .014 180CM 180CM via the CIRC Mid. Saph joan 13:22:24 balloon2.5*20 A balloons over a WIRE, RUNTHROUGH NS FLOPPY .014 180CM 180CM in the CIRC Mid was inflated usin g a 30 ROMEO 13:23:03 INDEFLATOR at 8 romeo for 15 sec. Saphire balloon2.5*20 13:23:27 Balloon Removed. A STENT, 2.5 38MM VLADISLAV 2.5 38MM was advanced through a AL 2 GUIDE CATHETER FR 6 over a WIRE, 13:25:35 RUNTHROUGH NS FLOPPY .014 180CM 180CM. A STENT, 2.5 38MM VLADISLAV 2.5 38MM was deployed using a 30 ROMEO INDEFLATOR at 15 atmospheres for 15 seconds in 13:25:37 the CIRC Mid. 13:26:18 The LCA was injected and visualized at various angles. OMNIPAQUE, 350 MG, 150ML 150ML used . 13:27:24 HR=66 bpm, SVIK=028/70 mmhg, SpO2=95.0 %, Resp=15 B/min, Pain=6, Boris=10, Miller=2 13:27:26 Wire removed After removing the current catheter a JR 5.0 GUIDE CATHETER FR 6 was advanced over a WIRE, EXCH STARR 260CM 13:28:41 3MMJ 260CM. 13:30:58 A WIRE, RUNTHROUGH NS FLOPPY .014 180CM 180CM was inserted via CIRC Mid. 13:32:01 Interventional wire has crossed the lesion 13:32:27 HR=64 bpm, ZQFG=694/61 mmhg, SpO2=95.0 %, Resp=20 B/min, Pain=6, Boris=10, Miller=2 A balloons was inserted over WIRE, RUNTHROUGH NS FLOPPY .014 180CM 180CM via the RCA Dist. Saph joan 13:32:58 balloon2.5*20 A balloons over a WIRE, RUNTHROUGH NS FLOPPY .014 180CM 180CM in the RCA Dist was inflated usin g a 30 ROMEO 13:33:46 INDEFLATOR at 10 romeo for 10 sec. Saphire balloon2.5*20 A balloons over a WIRE, RUNTHROUGH NS FLOPPY .014 180CM 180CM in the RCA Dist was inflated usin g a 30 ROMEO 13:34:11 INDEFLATOR at 10 romeo for 10 sec. Saphire balloon2.5*20 A balloons over a WIRE, RUNTHROUGH NS FLOPPY .014 180CM 180CM in the RCA Mid was inflated using a 30 ROMEO 13:34:33 INDEFLATOR at 10 romeo for 10 sec. Saphire balloon2.5*20 A balloons over a WIRE, RUNTHROUGH NS FLOPPY .014 180CM 180CM in the RCA Prox was inflated usin g a 30 ROMEO 13:34:59 INDEFLATOR at 8 romeo for 10 sec. Saphire balloon2.5*20 13:35:58 Balloon Removed. A STENT, 2.25 26MM VLADISLAV 2.25 26MM was advanced through a JR 5.0 GUIDE CATHETER FR 6 over a WIRE , 13:37:19 RUNTHROUGH NS FLOPPY .014 180CM 180CM. 13:37:24 HR=55 bpm, QMZR=163/63 mmhg, SpO2=97.0 %, Resp=10 B/min, Pain=6, Boris=10, Miller=2 A STENT, 2.25 26MM VLADISLAV 2.25 26MM was deployed using a 30 ROMEO INDEFLATOR at 16 atmospheres for 10 seconds 13:38:05 in the RCA Dist. A balloons over a WIRE, RUNTHROUGH NS FLOPPY .014 180CM 180CM in the RCA Prox was inflated usin g a 30 ROMEO 13:38:49 INDEFLATOR at 8 romeo for 10 sec. 2.25*26 stent balloon 13:39:14 Delivery device removed 13:39:21 The RCA was injected and visualized at various angles. OMNIPAQUE, 350 MG, 150ML 150ML used . 13:40:05 100 mcg NTG (IC) given in lab by Carlos Robbins via Intra-coronary. A STENT, 2.5 12MM VLADISLAV 2.5 12MM was advanced through a JR 5.0 GUIDE CATHETER FR 6 over a WIRE, 13:40:49 RUNTHROUGH NS FLOPPY .014 180CM 180CM. A STENT, 2.5 12MM VLADISLAV 2.5 12MM was deployed using a 30 ROMEO INDEFLATOR at 8 atmospheres for 10 seconds in 13:41:18 the RCA Prox. 13:41:58 Delivery device removed 13:42:04 The RCA was injected and visualized at various angles. OMNIPAQUE, 350 MG, 150ML 150ML used . 13:42:15 Wire removed 13:42:18 A WIRE, EXCHANGE 260CM 3MMJ 260CM was inserted via Radial (right). 13:42:27 HR=55 bpm, JBMY=227/61 mmhg, SpO2=96.0 %, Resp=16 B/min, Pain=6, Boris=10, Miller=2 13:42:40 Catheter was removed 13:42:43 Wire removed 13:42:59 Case End (Physician broke scrub) Assessment: Final Case, HR=58 BPM, Rhythm=Sinus, IQKZ=586/61 mmhg, Chest Pain=0, Edema=None, Color=Normal, Skin = Warm, Dry Right Pulses: Boyd Ped=2, Femoral=2, Radial=2 13:44:39 Left Pulses: Femoral=2 Neurological: State=Alert, Ox3, RIGGS Respiration: Resp=11 B/min, SpO2=99 %, O2=2 lpm Radial Compression Device Used. 13 mLs of air placed in BAND, RADIAL COMPRESSION TR SHORT 24 24 CM. Affected 13:45:23 hand 99 % O2 saturation. 13:45:52 No case complications noted. 13:45:54 Cine recording checked. 13:46:29 Bedside Report will be given. 13:46:38 Implantable Device card placed in patient's chart. 13:46:46 A Left Heart Cath was performed. 13:48:03 HR=58 bpm, JZAI=576/65 mmhg, SpO2=97.0 %, Resp=12 B/min, Pain=6, Boris=10, Miller=2 13:51:58 Vitals capture stopped. 13:52:55 180 mg BRILLINTA given in lab by Mary Grace Flores, RN in Per mouth via Oral. 13:55:02 Patient moved to [facility] End Study - Contrast Media Used In Study Contrast Total Opened (mL) Total Used (mL) Total Wasted (mL) Omnipaque 150 135 15 End Study - Maximum Contrast Load Max Contrast Load (mL) 413.6 End Study - Radiation Exposure Fluoro Time (minutes) 8.9 End Study - Patient Disposition Complications Transferred To Interventional Outcome No Telemetry Bed successful
--- NOTE | 2017-12-15 14:02 | P.PCN ---
Date of procedure: 12/15/17 Pre-op diagnosis: Non-ST elevation myocardial infarction Procedure: Procedure performed: 1. Fluoroscopy with interpretation 2. Left heart catheterization 3. Coronary angiography 4. Percutaneous coronary intervention with drug-eluting stent to the left circumflex extending into the first obtuse marginal branch 5. Percutaneous coronary intervention with drug-eluting stents to the proximal and distal right coronary artery Methods: Risks, benefits, and alternatives were discussed with the patient. Patient understood and consented to the procedure. Patient was brought into the cardiac catheterization lab and placed in the catheterization table. Right groin and right wrist were prepped and draped in sterile fashion. Right wrist was anesthetized with 2% lidocaine. Right radial artery was cannulated and a 6 Malian 11 cm sheath was placed without difficulty. 200 mcg of intra-arterial nitroglycerin and 3000 units of intravenous heparin was administered. Left heart catheterization: 6 Malian JR 5 catheters advanced across aortic valve without difficulty. Intra- ventricular hemodynamics measured at 131 over 11 mmHg. Coronary angiography: Left coronary circulation selectively engaged with a 6 Malian JL 3.5 catheter. Right coronary circulation selectively engaged a 6 Malian JR 5 catheter. 1. Left main coronary angiography normal 2. Left anterior descending coronary has minor luminal irregularities in the proximal segment and distal segment. First diagonal branch has minor luminal irregularities. 3. Left circumflex coronary artery has severe stenosis in the mid segment extending into the first obtuse marginal branch with severity of proximal 90%. 4. Right coronary is a dominant vessel giving rise to the posterior descending branch. Right coronary has a proximal stenosis of 75% and a distal stenosis of 80%. The posterior descending branch has minor luminal irregularities. Percutaneous core intervention: Left coronary circulation selectively engaged with a 6 Malian AL to guide catheter. A 0.014 inch 180 cm Terumo run through wire was navigated down the distal first obtuse marginal branch. A 2.5 x 20 mm CSI sapphire balloon was advanced to the mid left circumflex coronary artery extending into the proximal segment of the obtuse marginal branch and deployed in 2 sequential inflations. The crossing profile was excellent. Repeat angiography still showed severe residual stenosis. A 2.5 x 34 mm Rx resolute Michael drug-eluting stent was advanced to the proximal left circumflex extending across into the first obtuse marginal branch and deployed repeat angiography showed no residual stenosis EMILY -3 flow. Attention was then directed towards the right coronary artery. Right coronary was selectively engaged with 6 Malian JR 5 guide catheter. The Terumo wire was navigated down the distal posterior descending branch. The sapphire balloon was deployed in the proximal distal segment repeat angiography still showed residual stenosis. A 2.25 x 26 mm Rx resolute Michael stent was advanced on a distal right coronary deployed. A 2.5 x 12 mm Rx resolute Michael stent was deployed in the proximal segment. Repeat angiography showed no residual stenosis. Conclusions: 1. Severe two-vessel coronary disease involving the left circumflex and right coronary arteries 2. Successful percutaneous intervention with drug-eluting stents to the left circumflex and right coronary arteries Plan; Patient be monitored closely for any postprocedural complications. We will initiate aspirin, Brilinta, statin, angiotensin-converting enzyme inhibitor, and beta-blockade, and long-acting nitrate. Order 2D echocardiogram. We did want to do a left ventriculogram given contrast administration. Anticipate discharge tomorrow.
[2017-12-15] MEDS ORDERED: Iohexol 350 MG/ML 50 ML Vial (for Cath Lab) IVCONTRAST ONE (15:02)
[2017-12-15] MEDS ORDERED: Iohexol 350 MG/ML 100 ML Vial (for Cath Lab) IVCONTRAST ONE (15:02)
--- NOTE | 2017-12-15 17:58 | P.PNIM ---
Subjective Interval history: No current chest pain. Patient appears to be comfortable, he does not have any other complaints. Physical Exam Vital signs: Vital Signs 12/14/17 18:10 12/14/17 18:17 12/14/17 18:25 Temperature Pulse Rate 67 69 69 Respiratory Rate 16 16 Blood Pressure 140/105 H 129/70 Pulse Oximetry 96 99 12/14/17 20:57 12/14/17 23:25 12/15/17 00:44 Temperature Pulse Rate 72 66 74 Respiratory Rate 18 18 18 Blood Pressure 116/72 117/72 Pulse Oximetry 97 97 97 12/15/17 01:32 12/15/17 02:00 12/15/17 03:00 Temperature 97.4 F L 98.0 F Pulse Rate 59 L 61 60 Respiratory Rate 16 14 Blood Pressure 121/85 104/53 L Pulse Oximetry 99 98 12/15/17 04:00 12/15/17 05:00 12/15/17 06:00 Temperature Pulse Rate 59 L 58 L 66 Respiratory Rate Blood Pressure Pulse Oximetry 12/15/17 07:00 12/15/17 08:51 Temperature 97.7 F Pulse Rate 67 Respiratory Rate 18 Blood Pressure 137/82 Pulse Oximetry 99 98 Intake & Output 12/14/17 12/15/17 12/15/17 18:59 06:59 18:59 Intake Total 0 / 0 10 / 10 Output Total 200 / 200 Balance 0 / 0 -190 / -190 Weight 83 kg 82.9 kg Intake: IV 10 / 10 Heparin/NS PF Inj 1,500 ML @ 0 10 / 10 mls/hr .ROUTE .[facility] Rx#: [id number] Oral 0 / 0 Output: Urine 200 / 200 Other: # Voids 2 Narrative: General patient in no acute distress HEENT extraocular movements are intact, clear oropharyngeal mucosa, no JVD Cardiovascular S1-S2 audible Respiratory clear to auscultation bilaterally Abdomen soft, nontender, nondistended, normal bowel sounds Extremities no edema. 2+ distal pulses in bilateral upper and lower extremities. Neuro no neurological deficits Results - Labs CBC & Chem 7: 12/15/17 05:16 12/15/17 05:16 Laboratory Results - last 24 hr 12/14/17 12/14/17 12/14/17 17:08 20:00 23:25 WBC RBC Hgb Hct MCV MCH MCHC RDW Plt Count MPV PT 10.2 INR 1.0 APTT 28.2 67.1 H D Sodium Potassium Chloride Carbon Dioxide Anion Gap BUN Creatinine Estimated GFR Random Glucose Calcium Total Creatine Kinase Troponin I 1.98 H* Triglycerides Cholesterol LDL Cholesterol, Calc HDL Cholesterol Cholesterol/HDL Ratio 12/14/17 12/15/17 12/15/17 23:25 05:16 05:16 WBC 7.7 RBC 3.89 L Hgb 12.0 L Hct 35.2 L MCV 90.4 MCH 31.0 MCHC 34.3 RDW 14.5 Plt Count 167 MPV 8.8 PT INR APTT Sodium 141 Potassium 3.7 Chloride 108 H Carbon Dioxide 26.3 Anion Gap 7 BUN 23 H Creatinine 1.15 Estimated GFR 63 L Random Glucose 87 Calcium 7.9 L Total Creatine Kinase 162 Troponin I 2.08 H* Triglycerides 104 Cholesterol 236 H LDL Cholesterol, Calc 174 H HDL Cholesterol 41.3 Cholesterol/HDL Ratio 5.71 12/15/17 05:16 WBC RBC Hgb Hct MCV MCH MCHC RDW Plt Count MPV PT INR APTT 58.2 H Sodium Potassium Chloride Carbon Dioxide Anion Gap BUN Creatinine Estimated GFR Random Glucose Calcium Total Creatine Kinase Troponin I Triglycerides Cholesterol LDL Cholesterol, Calc HDL Cholesterol Cholesterol/HDL Ratio Assessment and Plan - Plan This patient is a 72-year-old male with a diagnosis of hypertension, dyslipidemia, who presented to the emergency department on 12/14/2017 with complaints of chest pain. He was found to have an elevated troponin of 1.6 and was transferred to our facility for further management and care. The patient states his symptoms started this past Monday morning left-sided chest pain with radiation to his left upper extremity and hand. He was subsequently admitted for non-ST segment elevation LA 1. Non-ST segment elevation LA 2. Hypertension/dyslipidemia The patient had an EKG done which showed sinus rhythm ST segment depressions in the anterior leads. Troponin was found to be elevated. The cardiology team was consulted to evaluate the patient. Patient was given aspirin, Brilinta, beta-cayetano, and was started on a heparin drip. Continue lisinopril. Cardiology schedule the patient for a cardiac catheterization. We will follow-up with cardiology after the cardiac catheterization further recommendations. We will continue nitroglycerin and morphine as needed for chest pain. Blood pressures under control. 3. Renal insufficiency Patient arrived with a serum creatinine of 1.3. Serum creatinine is downtrending. Will follow up in the a.m. renal panel. 4. Gastroesophageal reflux disease Continue Protonix p.o. 5. BPH Continue Flomax. DVT prophylaxis, patient is currently on heparin drip
--- NOTE | 2017-12-15 18:17 | ECHRPT ---
Indication: CHEST PAIN CONCLUSIONS The left ventricular systolic function is kmwqzhqn-yz-ydxjwas reduced with an estimated ejection fra ction in the range of 35-40%. There is global left ventricular dysfunction. Akinetic apical wall motion. Doppler parameters are consistent with impaired left ventricular relaxtion (grade 1 diastolic dysfun ction). Trace mitral valve regurgitation. There is trace tricuspid valve regurgitation. BP: / HR: Rhythm: Sinus MEASUREMENTS (Male / Female) Normal Values Technical Quality:Fair 2D ECHO LV Diastolic Diameter PLAX 4.7 cm 4.2 - 5.9 / 3.9 - 5.3 cm LV Systolic Diameter PLAX 3.6 cm IVS Diastolic Thickness 0.8 cm 0.6 - 1.0 / 0.6 - 0.9 cm LVPW Diastolic Thickness 0.8 cm 0.6 - 1.0 / 0.6 - 0.9 cm LV Relative Wall Thickness 0.3 RV Internal Dim ED PLAX 4.2 cm LVOT Diameter 2.0 cm Aortic Root Diameter 2.9 cm DOPPLER AV Peak Velocity 145.0 cm/s AV Peak Gradient 8.4 mmHg LVOT Peak Velocity 120.0 cm/s LVOT Peak Gradient 5.8 mmHg AV Area Cont Eq pk 2.6 cm Mitral E Point Velocity 84.2 cm/s Mitral A Point Velocity 96.7 cm/s Mitral E to A Ratio 0.9 LV E' Lateral Velocity 8.6 cm/s Mitral E to LV E' Lateral Ratio 9.8 LV E' Septal Velocity 5.8 cm/s Mitral E to LV E' Septal Ratio 14.5 TR Peak Velocity 200.0 cm/s TR Peak Gradient 16.0 mmHg Right Atrial Pressure 10.0 mmHg Pulmonary Artery Systolic Pressu 26.0 mmHg Right Ventricular Systolic Press 26.0 mmHg PV Peak Velocity 61.7 cm/s PV Peak Gradient 1.5 mmHg FINDINGS LEFT VENTRICLE The left ventricular systolic function is fgycuwqu-xq-qcjifdh reduced with an estimated ejection fra ction in the range of 35-40%. There is global left ventricular dysfunction. Akinetic apical wall motion. Doppler parameters are consistent with impaired left ventricular relaxtion (grade 1 diastolic dysfun ction). RIGHT VENTRICLE The right ventricle is mildly to moderatly dilated. LEFT ATRIUM The left atrial size is normal. RIGHT ATRIUM The right atrial size is normal. ATRIAL SEPTUM Normal atrial septal thickness. AORTA The aortic root and proximal ascending aorta are normal in size on limited imaging. MITRAL VALVE Structurally normal mitral valve. No mitral valve stenosis. Trace mitral valve regurgitation. AORTIC VALVE Trileaflet aortic valve. No aortic valve stenosis or regurgitation. TRICUSPID VALVE Grossly normal tricuspid valve There is trace tricuspid valve regurgitation. No tricuspid valve stenosis. PULMONARY VALVE No pulmonary valve regurgitation or stenosis. VESSELS The inferior vena cava is normal in size. PERICARDIUM No pericardial effusion. Tristen Palma DO (Electronically Signed) Final Date:15 December 2017 18:16
--- NOTE | 2017-12-15 19:24 | ECG ---
Date Performed: 12/14/2017 Time Performed: 23:26:38 PTAGE: 72 years EKG: SINUS BRADYCARDIA INCOMPLETE RIGHT BUNDLE BRANCH BLOCK POSSIBLE LATERAL MYOCARDIAL INFARCTI ON Since the previous tracing, no significant change noted ABNORMAL ECG PREVIOUS TRACING : 12/14/2017 19.52 DOCTOR: Dinesh Rutledge Interpretating Date/Time 12/15/2017 19:24:01
--- NOTE | 2017-12-15 19:44 | ECG ---
Date Performed: 12/14/2017 Time Performed: 16:32:57 PTAGE: 72 years EKG: Sinus rhythm INCOMPLETE RIGHT BUNDLE BRANCH BLOCK MODERATE ST DEPRESSION ABNORMAL QRS-T ANGLE ABNORMAL ECG PREVIOUS TRACING : 05/17/2013 14.28 Compared to previous tracing, anterior ST depression appear s slightly more prominent Clinical correlation is recommended DOCTOR: Dinesh Rutledge Interpretating Date/Time 12/15/2017 19:43:30
--- NOTE | 2017-12-15 19:45 | ECG ---
Date Performed: 12/14/2017 Time Performed: 19:52:26 PTAGE: 72 years EKG: Sinus rhythm INCOMPLETE RIGHT BUNDLE BRANCH BLOCK POSSIBLE LATERAL MYOCARDIAL INFARCTION ABNORMAL ECG PREVIOUS TRACING : 12/14/2017 16.32 Compared to previous tracing, anterior ST depression is res olved DOCTOR: Dinesh Rutledge Interpretating Date/Time 12/15/2017 19:44:04
[2017-12-15] MEDS: Butalbital/APAP/Caff 50/325/40 MG Tablet PO PRN (22:41)
[2017-12-16] MEDS: Butalbital/APAP/Caff 50/325/40 MG Tablet PO PRN ×2 (06:18→11:50)
[2017-12-16] MEDS ORDERED: Isosorbide Mononitrate 30 MG ER 24HR Tablet (Imdur) PO SCH (07:00)
[2017-12-16 07:30] LABS: Baso % (Auto) 0.3 % (0.0-2.0); Eos # (Auto) 0.1 th/mm3 (0.0-0.4); Eos % (Auto) 1.4 % (0.0-4.0); Hematocrit 34.3 % (39.0-51.0); Hemoglobin 11.7 gm/dL (13.0-17.0); Lymph # (Auto) 1.2 th/mm3 (1.0-4.8); Mean Corpuscular HGB Conc 34.1 % (32.0-36.0); Mean Corpuscular Hemoglobin 31.1 pg (27.0-34.0); Mean Corpuscular Volume 91.1 fL (80.0-100.0); Mean Platelet Volume 8.7 fL (7.0-11.0); Mono # (Auto) 0.6 th/mm3 (0.0-0.9); Mono % (Auto) 6.1 % (0.0-8.0); Neut # (Auto) 7.4 th/mm3 (1.8-7.7); Neut % (Auto) 79.2 % (16.0-70.0); Platelet Count 152 th/mm3 (150-450); Red Blood Count 3.76 mil/mm3 (4.50-5.90); Red Cell Distribution Width 14.2 % (11.6-17.2); White Blood Count 9.3 th/mm3 (4.0-11.0)
[2017-12-16 07:55] LABS: Carbon Dioxide 21.8 meq/L (21.0-32.0); Potassium 3.7 meq/L (3.5-5.1)
[2017-12-16 07:59] LABS: Chol/HDL Ratio 6.41 Ratio; HDL Cholesterol 37.4 mg/dL (40.0-60.0)
[2017-12-16 08:22] LABS: Creatine Kinase MB 19.5 ng/mL (0.5-3.6)
[2017-12-16 08:43] LABS: CKMB Percent 5.6 % (0.0-4.0)
[2017-12-16] MEDS ORDERED: Lisinopril 5 MG Tablet PO SCH (09:00)
[2017-12-16] MEDS: Venlafaxine XR 75 MG Capsule PO SCH (09:05)
--- NOTE | 2017-12-16 17:28 | P.DS ---
Date of admission: 12/14/17 18:25 Primary care physician: Octavio Briggs DO Brief History from admission: Mr. Saeed is a very pleasant 72-year-old male with a history of hypertension, hyperlipidemia that presented to our facility with complaints of left-sided chest pain. He was admitted and treated for an NSTEMI . DS: Medications - Discharge Medications Prescriptions: aspirin 81 mg PO DAILY #60 tab atorvastatin [Lipitor] 40 mg PO DAILY #30 tab ckhlijivca-lfmgkjltelejm-eetx 1 tab PO Q6H PRN #12 tab PRN Reason: Headache carvedilol [Coreg] 3.125 mg PO BID #60 tab isosorbide mononitrate 30 mg PO DAILY@0700 #60 tab lisinopril 5 mg PO DAILY #60 tab ticagrelor [Brilinta] 90 mg PO BID #120 tab DS: Summary Hospital Course: This patient is a 72-year-old male with a diagnosis of hypertension, dyslipidemia who presents to our emergency department with complaints of chest pain on 12/14/2017. The patient was found to have elevated troponin of 1.6 and was transferred to our facility for further management and care. 1. Non-ST segment elevation MS 2. Hypertension/dyslipidemia The patient presented with left-sided chest pain. An EKG was done which showed sinus rhythm with ST segment depressions in anterior leads. His troponin was found to be elevated. Cardiology evaluate the patient and the patient underwent cardiac catheterization. The patient had severe two-vessel coronary disease involving left circumflex and right coronary arteries. Successful intervention with drug-eluting stents to the left circumflex and right coronary arteries were placed. Patient had a total of 3 stents placed. The patient is currently on aspirin, Brilinta, statin, Coreg, and lisinopril. Ejection fraction is approximately 40%. The patient was cleared by cardiology for discharge. He was advised to avoid strenuous activity and sexual activity for the next 3 weeks. He should follow-up with his primary care doctor in the next 1 week. He should also follow-up with cardiology in the next 1 week. The importance of medication compliance including risk of in-stent thrombosis were discussed with the patient detail. The patient agrees to take his medication. He is now chest pain-free and will be discharged home today. - Time Spent with Patient Total time spent providing and/or coordinating discharge services: Greater than 30 minutes - Quality: VTE Deep Vein Thrombosis/Pulmonary Embolism Present on Admission: No Exam Vital signs: Vital Signs 12/15/17 18:00 12/15/17 19:00 12/15/17 20:00 Temperature 97.9 F Pulse Rate 70 68 70 Respiratory Rate 18 Blood Pressure 125/73 Pulse Oximetry 98 98 12/15/17 20:14 12/15/17 20:22 12/15/17 20:46 Temperature Pulse Rate 59 L 89 Respiratory Rate 18 Blood Pressure Pulse Oximetry 12/15/17 21:00 12/15/17 21:53 12/15/17 22:00 Temperature Pulse Rate 67 70 Respiratory Rate 18 Blood Pressure Pulse Oximetry 12/15/17 23:00 12/16/17 00:00 12/16/17 01:00 Temperature 98.9 F Pulse Rate 75 75 72 Respiratory Rate 16 Blood Pressure 130/66 Pulse Oximetry 96 12/16/17 02:00 12/16/17 03:00 12/16/17 04:00 Temperature 98.6 F Pulse Rate 67 69 67 Respiratory Rate 17 Blood Pressure 143/78 H Pulse Oximetry 97 12/16/17 05:00 12/16/17 06:00 12/16/17 07:00 Temperature 97.5 F L Pulse Rate 70 66 63 Respiratory Rate 18 Blood Pressure 141/73 H Pulse Oximetry 96 12/16/17 07:03 12/16/17 08:00 12/16/17 09:00 Temperature Pulse Rate 70 60 Respiratory Rate 17 Blood Pressure Pulse Oximetry 96 12/16/17 10:00 12/16/17 11:00 12/16/17 12:00 Temperature 98.0 F Pulse Rate 60 62 64 Respiratory Rate 16 Blood Pressure 122/65 Pulse Oximetry 12/16/17 12:59 12/16/17 13:00 12/16/17 14:00 Temperature Pulse Rate 80 62 Respiratory Rate Blood Pressure Pulse Oximetry 97 12/16/17 14:47 12/16/17 15:00 12/16/17 15:30 Temperature 97.7 F Pulse Rate 63 61 Respiratory Rate 15 18 Blood Pressure 116/58 L Pulse Oximetry 97 12/16/17 16:00 Temperature Pulse Rate 61 Respiratory Rate Blood Pressure Pulse Oximetry Intake & Output 12/15/17 12/16/17 12/16/17 18:59 06:59 18:59 Intake Total 10 / 10 720 / 720 Output Total 200 / 200 600 / 600 Balance -190 / -190 120 / 120 Weight 83 kg Intake: IV 10 Heparin/NS PF Inj 1,500 ML @ 0 10 / 10 mls/hr [facility] [id number] Oral 720 / 720 Output: Urine 200 / 200 600 / 600 Other: Date of Last Bowel Movement 12/14/17 12/14/17 Narrative: General patient in no acute distress HEENT extraocular movements are intact, clear oropharyngeal mucosa, no JVD Cardiovascular S1-S2 audible Respiratory clear to auscultation bilaterally Abdomen soft, nontender, nondistended, normal bowel sounds Extremities no edema. 2+ distal pulses in bilateral upper and lower extremities. Neuro no neurological deficits Results Procedures completed during hospitalization: Cardiac catheterization Labs on day of discharge: Labs from last 24 hours 12/16/17 12/16/17 05:12 05:12 WBC 9.3 RBC 3.76 L Hgb 11.7 L Hct 34.3 L MCV 91.1 MCH 31.1 MCHC 34.1 RDW 14.2 Plt Count 152 MPV 8.7 Neut % (Auto) 79.2 H Lymph % (Auto) 13.0 Knott % (Auto) 6.1 Eos % (Auto) 1.4 Baso % (Auto) 0.3 Neut # (Auto) 7.4 Lymph # (Auto) 1.2 Knott # (Auto) 0.6 Eos # (Auto) 0.1 Baso # (Auto) 0.0 WBC Differential . Differential Comment Auto diff final Sodium 139 Potassium 3.7 Chloride 108 H Carbon Dioxide 21.8 Anion Gap 9 BUN 18 Creatinine 1.06 Estimated GFR 69 L Random Glucose 101 Calcium 8.0 L Magnesium 2.0 Total Creatine Kinase 349 H CK-MB (CK-2) 19.5 H CK-MB (CK-2) % 5.6 H* Triglycerides 176 H Cholesterol 240 H LDL Cholesterol, Calc 167 H HDL Cholesterol 37.4 L Cholesterol/HDL Ratio 6.41 - Impressions ITS Impressions Chest X-Ray 12/14/17 16:57 CONCLUSION: Negative examination. Discharge Plan - Discharge Disposition Patient Disposition: Discharge Home - Discharge Condition Condition: Stable - Discharge Order Discharge Orders: Discharge Order (Routine); Ordered 12/16/17 Ordered By: Mariaelena Monroe - Physicians Team Primary Care Provider: Octavio Briggs Attending Provider: Mariaelena Monroe Other Providers: Sheldon Marino DO
== END 2017-12-16 17:45 | disposition home or self-care (01) ==
LOC: PHED 16:32 → INTOOBSV 18:18 → PHEDA 18:25 → HCIS 12-15 00:59
PROVIDERS: ADMIT Hospitalist; ATTEND Hospitalist